=== PATIENT | female | born 1955 | race Caucasian/White ===

== ENCOUNTER → 2019-09-08 | Outpatient (CLI) | payer OTHER ==
[~2019-09-08] MED LIST: AMOCLA875; DOXY100 PO; FAMO20 PO; NAPR375 PO; ONDA8 PO; OXYACE7.5T PO; PRED20 PO; PROG100; THYR60
== END | disposition home or self-care (01) ==
LOC: PLD 15:16 → LAB SHORT 15:16
DX: L30.8 Other specified dermatitis (principal)
CPT/HCPCS: 88305; 88312

== ENCOUNTER → 2020-12-06 | Outpatient (CLI) | payer OTHER | END | disposition home or self-care (01) | LOC: LAB SHORT 16:22 | DX: L08.0 Pyoderma (principal) | CPT/HCPCS: 87070; 87205 ==